=== PATIENT | male | born 1995 | race African-American/Black ===

== ENCOUNTER 2021-12-09 16:43 | Emergency (ER) | payer SELFPAY ==
[~2021-12-09] VITALS: Ht 170.2 cm; Wt 127.0 kg
[2021-12-09] MEDS ORDERED: IBUPROFEN 600MG TABLET PO ONE (17:30)
[2021-12-09 18:04] VITALS: BP 149/80
== END 2021-12-09 19:48 | disposition home or self-care (01) ==
LOC: ER 16:43
DX: M54.9 Dorsalgia, unspecified (principal); I72.9 Aneurysm of unspecified site; V43.12XA Car passenger injured in collision with other type car in nontraffic accident, initial encounter; Y93.89 Activity, other specified; Y92.410 Unspecified street and highway as the place of occurrence of the external cause; Z98.890 Other specified postprocedural states
CPT/HCPCS: 99282